=== PATIENT | female | born 1950 | race Caucasian/White ===

== ENCOUNTER 2025-06-05 13:05 | Inpatient (IN) | payer MEDICARE, SELFPAY ==
[~2025-06-05] VITALS: Ht 200.7 cm; Wt 64.5 kg
[2025-06-05 13:55] LABS: BASO # 0.0 10^3/uL (0.0-0.2); BASO % 0.4 % (0.0-1.0); EOS # 0.2 10^3/uL (0.0-0.5); EOS % 2.8 % (0.0-3.0); LYMPH # 1.6 10^3/uL (1.5-5.0); LYMPH % 18.3 % (24.0-44.0); MONO # 0.5 10^3/uL (0.0-0.8); MONO % 5.5 % (2.0-8.0); NEUTROPHILS # 6.2 10^3/uL (1.5-8.5); NEUTROPHILS % 72.8 % (36.0-66.0); PLATELET COUNT, AUTOMATED 297 10^3/uL (150-450)
[2025-06-05 14:08] LABS: INR 0.9
[2025-06-05 14:23] LABS: ALT/SGPT 19.0 U/L (7.0-40); AST/SGOT 30.0 U/L (<34); CALCIUM LEVEL 8.7 MG/DL (8.3-10.6); CARBON DIOXIDE LEVEL 26.0 MMOL/L (20-31); CHLORIDE LEVEL 104.0 MMOL/L (98-107); CREATININE FOR GFR 0.85 MG/DL (0.55-1.30); GLOMERULAR FILTRATION RATE 70.5 (>39); POTASSIUM SERUM 4.1 MMOL/L (3.5-5.1); SODIUM LEVEL 141.0 MMOL/L (136-145)
[2025-06-05 14:26] LABS: FREE T4 0.93 NG/DL (0.89-1.76)
[2025-06-05] MEDS ORDERED: ACETAMINOPHEN *IV* 1,000 MG in IV 1 EA IV PRN (17:05)
[2025-06-05] MEDS ORDERED: THYR60TA PO (17:19)
[2025-06-05] MEDS ORDERED: ECOT81TA5 PO (17:19)
[2025-06-05] MEDS ORDERED: METO25TA4 PO (17:19)
[2025-06-05] MEDS ORDERED: SUCCINYLCHOLINE 100MG/5ML SYRINGE As Ordered ONE (17:20)
[2025-06-05] MEDS ORDERED: D-10TAB3 PO (17:20)
[2025-06-05] MEDS ORDERED: HOME MED LIST COMPLETE! XX SCH (17:20)
[2025-06-05] MEDS ORDERED: LIDOCAINE 2% 100 MG/5 ML SDV (FOR ANES.) As Ordered ONE (17:21)
[2025-06-05] MEDS ORDERED: dexAMETHasone 4 MG/ML 1 ML VIAL As Ordered ONE (17:21)
[2025-06-05] MEDS ORDERED: ONDANSETRON 4MG 2ML VIAL As Ordered ONE (17:21)
[2025-06-05] MEDS ORDERED: PHENYLephrine 500MCG 5ML (100MCG/ML) SYRINGE As Ordered ONE (18:02)
[2025-06-05] MEDS ORDERED: ACETAMINOPHEN 1000MG/100ML IV BAG As Ordered ONE (18:05)
[2025-06-05] MEDS ORDERED: HYDROMORPHONE HCL 0.5 MG/0.5 ML SYRINGE IV PRN (18:50)
[2025-06-05] MEDS ORDERED: ONDANSETRON 4MG 2ML VIAL IV PRN (18:50)
[2025-06-05 20:14] VITALS: BP 124/65; TEMP 97.7; O2SAT 96
[2025-06-05 20:45] VITALS: BP 124/63; TEMP 97.5; O2SAT 95
[2025-06-05 21:24] VITALS: BP 125/62; TEMP 97.7; O2SAT 95
[2025-06-05] MEDS: NS (Normal Saline) 0.9% 1,000 ML IV SCH (21:56)
[2025-06-05] MEDS: MORPHINE 4 MG/ML 1 ML VIAL IV PRN (21:57)
[2025-06-05 22:34] VITALS: BP 123/61; TEMP 98.1; O2SAT 97
[2025-06-05 23:36] VITALS: BP 123/60; TEMP 98.1; O2SAT 94
[2025-06-06] VITALS (7 sets, daily range): BP systolic 114–132; BP diastolic 58–63; TEMP 97.7–98.8; O2SAT 93–97
[2025-06-06] MEDS: ceFAZolin SODIUM 2 GM in DEXTROSE 5% (D5W) ADV/MINI-BAG 50 ML IV SCH (01:48)
[2025-06-06 06:35] LABS: PLATELET COUNT, AUTOMATED 249 10^3/uL (150-450)
[2025-06-06 07:09] LABS: CALCIUM LEVEL 7.6 MG/DL (8.3-10.6); CARBON DIOXIDE LEVEL 26.0 MMOL/L (20-31); CHLORIDE LEVEL 103.0 MMOL/L (98-107); CREATININE FOR GFR 0.74 MG/DL (0.55-1.30); GLOMERULAR FILTRATION RATE 83.3 (>39); POTASSIUM SERUM 4.2 MMOL/L (3.5-5.1); SODIUM LEVEL 138.0 MMOL/L (136-145)
[2025-06-06] MEDS: MORPHINE 4 MG/ML 1 ML VIAL IV PRN (10:19)
[2025-06-06] MEDS: ENOXAPARIN 40 MG/0.4 ML SYRINGE (J1650 PER 10MG) SC SCH (13:41)
[2025-06-06] MEDS ORDERED: ACETAMINOPHEN 325 MG TAB PO PRN (14:30)
[2025-06-06] MEDS ORDERED: BISACODYL 10 MG SUPP PR PRN (14:35)
[2025-06-06] MEDS: METOPROLOL TART 25 MG TABLET PO SCH (14:52)
[2025-06-06] MEDS: PERCOCET 5MG/325MG TAB PO PRN (17:25)
[2025-06-06] MEDS: ASPIRIN 81 MG ENTERIC TABLET PO SCH (20:08)
[2025-06-07 00:24] VITALS: BP 122/65; TEMP 98.1; O2SAT 95
[2025-06-07 03:42] VITALS: BP 116/63; TEMP 98.2; O2SAT 95
[2025-06-07] MEDS: THYROID 30MG TAB PO SCH (06:02)
[2025-06-07 08:20] VITALS: BP 117/65; TEMP 98.2; O2SAT 98
[2025-06-07 09:59] LABS: PLATELET COUNT, AUTOMATED 247 10^3/uL (150-450)
[2025-06-07 10:19] LABS: CALCIUM LEVEL 7.9 MG/DL (8.3-10.6); CARBON DIOXIDE LEVEL 27.0 MMOL/L (20-31); CHLORIDE LEVEL 102.0 MMOL/L (98-107); CREATININE FOR GFR 0.68 MG/DL (0.55-1.30); GLOMERULAR FILTRATION RATE 89.6 (>39); POTASSIUM SERUM 4.0 MMOL/L (3.5-5.1); SODIUM LEVEL 139.0 MMOL/L (136-145)
[2025-06-07 12:14] VITALS: BP 101/50; TEMP 97.9; O2SAT 98
[2025-06-07] MEDS: MIRALAX *UNIT DOSE* 17 GM PACKET PO PRN (15:43)
[2025-06-07 16:22] VITALS: BP 141/69; TEMP 98.8; O2SAT 95
[2025-06-07 20:00] VITALS: BP 115/59; TEMP 98.6; O2SAT 99
[2025-06-08] VITALS: BP 121/60; TEMP 98.1; O2SAT 95
[2025-06-08 04:00] VITALS: BP 137/73; TEMP 97.9; O2SAT 94
[2025-06-08 06:41] LABS: PLATELET COUNT, AUTOMATED 233 10^3/uL (150-450)
[2025-06-08 07:10] LABS: CALCIUM LEVEL 7.7 MG/DL (8.3-10.6); CARBON DIOXIDE LEVEL 28 MMOL/L (20-31); CHLORIDE LEVEL 97 MMOL/L (98-107); CREATININE FOR GFR 0.62 MG/DL (0.55-1.30); GLOMERULAR FILTRATION RATE > 90.0 (>39); POTASSIUM SERUM 4.0 MMOL/L (3.5-5.1); SODIUM LEVEL 132 MMOL/L (136-145)
[2025-06-08 08:00] VITALS: BP 138/72; TEMP 98.4; O2SAT 98
[2025-06-08] MEDS: SENNA 8.6 MG TAB PO PRN (09:03)
[2025-06-08 12:00] VITALS: BP 135/69; TEMP 98.1; O2SAT 95
[2025-06-08] MEDS ORDERED: LACTULOSE 20 GM/30 ML SYRUP UDC PO PRN (13:10)
[2025-06-08] MEDS: LACTULOSE 20 GM/30 ML SYRUP UDC PO ONE (13:17)
[2025-06-08 16:41] VITALS: BP 129/66; TEMP 98.2; O2SAT 96
[2025-06-08 20:17] VITALS: BP 123/85; TEMP 97.9; O2SAT 94
[2025-06-09 04:06] VITALS: BP 118/60; TEMP 98.1; O2SAT 96
[2025-06-09 07:35] LABS: PLATELET COUNT, AUTOMATED 258 10^3/uL (150-450)
[2025-06-09 08:08] LABS: CALCIUM LEVEL 7.7 MG/DL (8.3-10.6); CARBON DIOXIDE LEVEL 28 MMOL/L (20-31); CHLORIDE LEVEL 96 MMOL/L (98-107); CREATININE FOR GFR 0.59 MG/DL (0.55-1.30); GLOMERULAR FILTRATION RATE > 90.0 (>39); POTASSIUM SERUM 4.1 MMOL/L (3.5-5.1); SODIUM LEVEL 131 MMOL/L (136-145)
[2025-06-09] MEDS: NS (Normal Saline) 0.9% 1,000 ML IV SCH (08:44)
[2025-06-09 12:00] VITALS: BP 122/58; TEMP 98.2; O2SAT 98
[2025-06-09 20:16] VITALS: BP 147/71; TEMP 98; O2SAT 97
[2025-06-10 04:33] VITALS: BP 126/64; TEMP 97.9; O2SAT 98
[2025-06-10 08:07] LABS: CALCIUM LEVEL 7.4 MG/DL (8.3-10.6); CARBON DIOXIDE LEVEL 27 MMOL/L (20-31); CHLORIDE LEVEL 104 MMOL/L (98-107); CREATININE FOR GFR 0.62 MG/DL (0.55-1.30); GLOMERULAR FILTRATION RATE > 90.0 (>39); POTASSIUM SERUM 4.1 MMOL/L (3.5-5.1); SODIUM LEVEL 139 MMOL/L (136-145)
[2025-06-10] MEDS: traMADol 50 MG TAB PO PRN (09:46)
[2025-06-10 11:55] VITALS: BP 133/63; TEMP 98.1; O2SAT 98
[2025-06-10 19:46] VITALS: BP 112/52; TEMP 98.2; O2SAT 98
[2025-06-11 03:51] VITALS: BP 129/61; TEMP 98.1; O2SAT 96
[2025-06-11 12:04] VITALS: BP 112/59; TEMP 98.2; O2SAT 99
[2025-06-11 20:05] VITALS: BP 131/51; TEMP 99.3; O2SAT 97
[2025-06-12 04:40] VITALS: BP 127/52; TEMP 98.2; O2SAT 95
[2025-06-12 12:02] VITALS: BP 124/64; TEMP 97.3; O2SAT 95
[2025-06-12 13:25] VITALS: BP 124/64
[2025-06-12] MEDS ORDERED: PERCOCET PO (15:32)
[2025-06-12] MEDS ORDERED: ACET32TAB PO (15:32)
[2025-06-12] MEDS ORDERED: SENN18TA PO (15:32)
[2025-06-12] MEDS ORDERED: ENOX40IN3 SC (15:32)
[2025-06-12] MEDS ORDERED: METH-1164 PO (15:32)
[2025-06-12] MEDS ORDERED: MIRA33506 PO (15:32)
[2025-06-12] MEDS ORDERED: BISA10SU PR (15:32)
[2025-06-12] MEDS ORDERED: TRAM50TA2 PO (15:32)
== END 2025-06-12 17:00 | disposition short-term general hospital (02) | DRG 493 ==
LOC: M ED 13:05 → EDBD 13:05 → M ED INP 16:59 → M MSPAV 20:06
PROVIDERS: ADMIT Student in an Organized Health Care Education/Training Program; ATTEND Internal Medicine
PROC: 0QSHXZZ Reposition Left Tibia, External Approach (ICD-10-PCS; 2025-06-05)
PROC: 0QSH04Z Reposition Left Tibia with Internal Fixation Device, Open Approach (ICD-10-PCS; principal; 2025-06-05 18:00)
DX: S82.142A Displaced bicondylar fracture of left tibia, initial encounter for closed fracture (principal); E87.1 Hypo-osmolality and hyponatremia; M81.0 Age-related osteoporosis without current pathological fracture; S82.832A Other fracture of upper and lower end of left fibula, initial encounter for closed fracture; E03.9 Hypothyroidism, unspecified; R00.0 Tachycardia, unspecified; E87.8 Other disorders of electrolyte and fluid balance, not elsewhere classified; R33.9 Retention of urine, unspecified; Z79.82 Long term (current) use of aspirin; Z79.899 Other long term (current) drug therapy; Z79.890 Hormone replacement therapy; V94.89XA Other water transport accident, initial encounter; Y92.838 Other recreation area as the place of occurrence of the external cause; Y93.89 Activity, other specified; Y99.8 Other external cause status